=== PATIENT | male | born 1945 | race Asian ===

== ENCOUNTER 2020-07-27 13:34 | Outpatient (CLI) | payer OTHER ==
[2020-07-27 14:43] LABS: POTASSIUM 3.7 mmol/L (3.6-5.2)
== END 2020-07-27 23:19 | disposition home or self-care (01) ==
LOC: LAB 13:34
PROVIDERS: ATTEND Nurse Practitioner Family
DX: I10 Essential (primary) hypertension (principal); E11.9 Type 2 diabetes mellitus without complications; E78.49 Other hyperlipidemia; M19.90 Unspecified osteoarthritis, unspecified site; G62.89 Other specified polyneuropathies; E53.8 Deficiency of other specified B group vitamins; E55.9 Vitamin D deficiency, unspecified; Z12.5 Encounter for screening for malignant neoplasm of prostate; N40.0 Benign prostatic hyperplasia without lower urinary tract symptoms
CPT/HCPCS: 80053; 80061; 82306; 82607; 84153; 84403; 84439; 84443